=== PATIENT | female | born 1980 | race African-American/Black ===

== ENCOUNTER 2019-05-22 08:59 | Emergency (ER) | payer SELFPAY ==
--- NOTE | 2019-05-22 09:52 | ER ---
Nurse's Notes [facility] Name: Keara Ramsey Age: 38 yrs Sex: Female : 1980 Arrival Date: 05/22/2019 Time: 09:04 Bed 4 Private MD: Diagnosis: Allergic contact dermatitis due to other chemical products Presentation: 05/22 09:28 Presenting complaint: Patient states: known hx of allergic reaction to hair dye. Dyed iw her hair 2 night ago, scalp is now red, irritated, inflamed. Transition of care: patient was not received from another setting of care. Onset: The symptoms/episode began/occurred 2 day(s) ago. Anaphylaxis evaluation, no signs or symptoms of anaphylaxis were noted. Onset of symptoms was May 20, 2019. Risk Assessment: Do you want to hurt yourself or someone else? Patient reports no desire to harm self or others. Initial Sepsis Screen: Does the patient meet any 2 criteria? No. Patient's initial sepsis screen is negative. Does the patient have a suspected source of infection? No. Patient's initial sepsis screen is negative. Care prior to arrival: None. 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 - Social history:: Smoking status: Patient/guardian denies using tobacco. - Ebola Screening: : Patient negative for fever greater than or equal to 101.5 degrees Fahrenheit, and additional compatible Ebola Virus Disease symptoms Patient denies exposure to infectious person Patient denies travel to an Ebola-affected area in the 21 days before illness onset No symptoms or risks identified at this time. Screenin:00 Abuse screen: Denies threats or abuse. Denies injuries from another. Nutritional mg2 screening: No deficits noted. Tuberculosis screening: No symptoms or risk factors identified. Fall Risk None identified. Assessment: 09:59 General: Appears in no apparent distress. comfortable, Behavior is calm, cooperative. mg2 Pain: Denies pain. Neuro: Level of Consciousness is awake, alert, obeys commands, Oriented to person, place, time, situation. Cardiovascular: Capillary refill < 3 seconds Patient's skin is warm and dry. Respiratory: Airway is patent Respiratory effort is even, unlabored, Breath sounds are clear bilaterally. in mediastinum, right upper lobe, left upper lobe, right middle lobe, left lower lobe and right lower lobe. GI: No signs and/or symptoms were reported involving the gastrointestinal system. : No signs and/or symptoms were reported regarding the genitourinary system. EENT: No signs and/or symptoms were reported regarding the EENT system. EENT: Reports itchiness . Derm: Skin is intact, is healthy with good turgor, Skin is pink, warm \T\ dry. normal. Musculoskeletal: Circulation, motion, and sensation intact. Capillary refill < 3 seconds. Vital Signs: 09:31 BP 116 / 73; Pulse 78; Resp 16; Temp 97.8(TE); Pulse Ox 99% on R/A; Weight 113.4 kg; iw Height 5 ft. 3 in. (160.02 cm); Pain 0/10; 10:00 BP 117 / 80; Pulse 79; Resp 18; Temp 98; Pulse Ox 100% on R/A; Pain 0/10; mg2 09:31 Body Mass Index 44.29 (113.40 kg, 160.02 cm) iw ED Course: 09:04 Patient arrived in ED. mr 09:21 Boris Calhoun PA is PHCP. jmm 09:21 Saurabh Gonzalez MD is Attending Physician. jmm 09:29 Triage completed. iw 09:31 Kwan Patel, NEYMAR is Primary Nurse. bp 09:31 Arm band placed on. iw 10:00 No provider procedures requiring assistance completed. Patient did not have IV access mg2 during this emergency room visit. 10:01 Patient has correct armband on for positive identification. mg2 Administered Medications: 09:57 Drug: predniSONE 60 mg Route: PO; mg2 10:00 Follow up: Response: No adverse reaction; Medication administered at discharge. mg2 Outcome: 09:51 Discharge ordered by . jmm 10:01 Discharged to home ambulatory. mg2 10:01 Condition: stable 10:01 Discharge instructions given to patient, Instructed on discharge instructions, follow up and referral plans. no driving heavy equipment, Demonstrated understanding of instructions, follow-up care, medications, Prescriptions given X 2. 10:01 Patient left the ED. mg2 Signatures: Boris Calhoun PA PA [facility] m[facility] Marianne Hendricks, RN RN iw Kwan Patel RN RN Leighton Hwang RN RN mg2
--- NOTE | 2019-05-22 09:53 | EDPHYS ---
Physician Documentation [facility] Name: Keara Ramsey Age: 38 yrs Sex: Female : 1980 Arrival Date: 05/22/2019 Time: 09:04 Bed 4 Private MD: ED Physician Saurabh Gonzalez HPI: 05/22 09:38 This 38 yrs old Black Female presents to ER via Ambulatory with complaints of Allergic jmm Reaction. 09:38 The patient presents with itching, rash. Onset: The symptoms/episode began/occurred jmm acutely, 2 day(s) ago. Associated signs and symptoms: Pertinent negatives: abdominal pain, chest pain, fever, hives, Syncope vomiting. Possible causes: hair dye. This is a 38 year old female with no chronic medical conditions that presents to the ED with complaints of scalp tenderness and irritation after using a hair dye. Patient states this has happened in the past. Denies vomiting, denies shortness of breath. . 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 - Social history:: Smoking status: Patient/guardian denies using tobacco. - Ebola Screening: : Patient negative for fever greater than or equal to 101.5 degrees Fahrenheit, and additional compatible Ebola Virus Disease symptoms Patient denies exposure to infectious person Patient denies travel to an Ebola-affected area in the 21 days before illness onset No symptoms or risks identified at this time. ROS: 09:38 Constitutional: Negative for fever, chills, and weight loss, Cardiovascular: Negative jmm for chest pain, palpitations, and edema, Respiratory: Negative for shortness of breath, cough, wheezing, and pleuritic chest pain. 09:38 Skin: Positive for rash. 09:38 All other systems are negative. Exam: 09:38 Constitutional: This is a well developed, well nourished patient who is awake, alert, jmm and in no acute distress. 09:38 Eyes: EOMI, no conjunctival erythema appreciated ENT: Moist Mucus Membranes Neck: Trachea midline, Supple Chest/axilla: Normal chest wall appearance and motion. Cardiovascular: Regular rate and rhythm. No edema appreciated Respiratory: Normal respirations, no respiratory distress appreciated Abdomen/GI: Non distended, soft Back: Normal ROM 09:38 MS/ Extremity: Moves all extremities, no obvious deformities appreciated, no edema noted to the lower extremities Neuro: Awake and alert, normal gait Psych: Behavior is normal, Mood is normal, Patient is cooperative and pleasant 09:38 Head/face: erythema noted to the scalp diffusely. 09:38 Skin: erythema noted ot the scalp diffusely. Vital Signs: 09:31 BP 116 / 73; Pulse 78; Resp 16; Temp 97.8(TE); Pulse Ox 99% on R/A; Weight 113.4 kg; iw Height 5 ft. 3 in. (160.02 cm); Pain 0/10; 10:00 BP 117 / 80; Pulse 79; Resp 18; Temp 98; Pulse Ox 100% on R/A; Pain 0/10; mg2 09:31 Body Mass Index 44.29 (113.40 kg, 160.02 cm) iw MDM: 09:38 Patient medically screened. [facility] 09:49 Data reviewed: vital signs, nurses notes. Counseling: I had a detailed discussion with christina the patient and/or guardian regarding: the historical points, exam findings, and any diagnostic results supporting the discharge/admit diagnosis, the need for outpatient follow up, to return to the emergency department if symptoms worsen or persist or if there are any questions or concerns that arise at home. ED course: Patient washed her hair multiple times after exposure. I do not suspect anaphylaxis. Patient advised to follow up with pcp and otherwise given strict return precautions. Patient understood and agrees with the plan of care. . Administered Medications: 09:57 Drug: predniSONE 60 mg Route: PO; mg2 10:00 Follow up: Response: No adverse reaction; Medication administered at discharge. mg2 Disposition: 05/22/19 09:51 Discharged to Home. Impression: Allergic contact dermatitis due to other chemical products. - Condition is Stable. - Discharge Instructions: Allergies, Adult. - Prescriptions for Hydroxyzine HCl 25 mg Oral Tablet - take 1 tablet by ORAL route every 6 hours As needed; 30 tablet. Prednisone 20 mg Oral Tablet - take 3 tablet by ORAL route once daily for 5 days; 15 tablet. - Medication Reconciliation Form, Thank You Letter, Antibiotic Education, Prescription Opioid Use form. - Follow up: Private Physician; When: 2 - 3 days; Reason: Recheck today's complaints, Continuance of care, Re-evaluation by your physician. Addendum: 05/24/2019 04:43 Co-signature as Attending Physician, Saurabh Gonzalez MD. g s Signatures: Boris Calhoun PA PA jmm Williams, Irene, RN RN iw Saurabh Gonzalez MD MD Leighton Talley RN RN mg2 Corrections: (The following items were deleted from the chart) 05/22 10:01 09:51 05/22/2019 09:51 Discharged to Home. Impression: Allergic contact dermatitis due mg2 to other chemical products. Condition is Stable. Forms are Medication Reconciliation Form, Thank You Letter, Antibiotic Education, Prescription Opioid Use. Follow up: Private Physician; When: 2 - 3 days; Reason: Recheck today's complaints, Continuance of care, Re-evaluation by your physician. melvin
[2019-05-22] MEDS ORDERED: predniSONE 20 MG TAB ONE (09:55)
[2019-05-22 10:07] VITALS: BP 117/80; TEMP 98; O2SAT 100
== END 2019-05-22 10:01 | disposition home or self-care (01) ==
LOC: ER 08:59
DX: L23.5 Allergic contact dermatitis due to other chemical products (principal)
CPT/HCPCS: 99283; J7512

== ENCOUNTER 2021-04-19 15:13 | Emergency (ER) | payer SELFPAY ==
--- NOTE | 2021-04-19 17:15 | RAD REPORT ---
EXAM DESCRIPTION: RAD - Chest Single View - 04/19/2021 5:10 pm CLINICAL HISTORY: CHEST PAIN COMPARISON: CHEST SINGLE VIEW dated 01/19/2015 FINDINGS: Lines: None. Lungs: No evidence of edema or pneumonia. Pleural: No significant pleural effusions or pneumothorax. Cardiac: The heart size is within normal limits. Bones: No acute fractures. Other: IMPRESSION: No acute cardiopulmonary disease.
[2021-04-19] MEDS ORDERED: KETOROLAC 30 MG/ML INJ ONE (17:42)
[2021-04-19 18:33] LABS: Basophils % 1.2 % (0-1.3); Hematocrit 40.3 % (36.0-45.0); RBC Red Blood Cell Count 4.56 M/uL (3.86-4.86)
[2021-04-19 18:36] LABS: BUN Blood Urea Nitrogen 10 mg/dL (7-18); Bicarbonate 27 mmol/L (21-32); Glucose Level 83 mg/dL (74-106); Potassium 3.9 mmol/L (3.5-5.1); Sodium Level 137 mmol/L (136-145); Troponin (Emerg Dept Use Only) < 0.02 ng/mL (0.0-0.045)
--- NOTE | 2021-04-19 18:40 | ER ---
Nurse's Notes [facility] Name: Keara Ramsey Age: 40 yrs Sex: Female : 1980 Arrival Date: 04/19/2021 Time: 15:18 Bed 18 Private MD: Diagnosis: Chest pain, unspecified Presentation: 04/19 15:28 Chief complaint: Patient states: i am having chest pain for 2 days. if i yell it hurts. tw2 if i move it hurts. it felt like it was stronger today than yesterday. i am under a lot of stress. Onset of symptoms was April 19, 2021. 15:32 Coronavirus screen: At this time, the client does not indicate any symptoms associated tw2 with coronavirus-19. Ebola Screen: Patient denies travel to an Ebola-affected area in the 21 days before illness onset. Initial Sepsis Screen: Does the patient meet any 2 criteria? No. Patient's initial sepsis screen is negative. Does the patient have a suspected source of infection? No. Patient's initial sepsis screen is negative. Risk Assessment: Do you want to hurt yourself or someone else? Patient reports no desire to harm self or others. 15:32 Method Of Arrival: Ambulatory tw2 15:32 Acuity: STEPHANIE 3 tw2 Triage Assessment: 15:30 General: Appears in no apparent distress. obese, well groomed, Behavior is calm, tw2 cooperative, appropriate for age. Pain: Complains of pain in chest. Cardiovascular: Reports chest pain. 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 - Social history:: Smoking status: Patient reports the use of cigarette tobacco products, smoked about 3 weeks ago a vape. Screenin:30 Abuse screen: Denies threats or abuse. Denies injuries from another. Nutritional bp screening: No deficits noted. Tuberculosis screening: No symptoms or risk factors identified. Fall Risk None identified. Assessment: 15:30 General: Appears distressed, uncomfortable, obese, Behavior is cooperative, appropriate bp for age, anxious. Pain: Complains of pain in chest Pain does not radiate. Pain began 4 hours ago. Neuro: No deficits noted. Cardiovascular: No deficits noted. Respiratory: No deficits noted. GI: No signs and/or symptoms were reported involving the gastrointestinal system. : No signs and/or symptoms were reported regarding the genitourinary system. 18:30 Reassessment: PT D/C HOME AMBULATORY, DX WITH NON-CARDIAC CHEST PAIN. bp Vital Signs: 15:31 BP 120 / 71; Pulse 86; Resp 17; Temp 98.2(TE); Pulse Ox 100% on R/A; Weight 113.4 kg tw2 (R); Height 5 ft. 3 in. (160.02 cm) (R); Pain 8/10; 18:30 BP 127 / 64; Pulse 73; Resp 17; Pulse Ox 96% ; bp 15:31 Body Mass Index 44.29 (113.40 kg, 160.02 cm) tw2 ED Course: 15:18 Patient arrived in ED. as 15:30 Arm band placed on. tw2 15:30 Patient has correct armband on for positive identification. Bed in low position. Call bp light in reach. Side rails up X2. lunchroom monitor on. Pulse ox on. NIBP on. 15:32 Triage completed. tw2 16:45 Kwan Patel, RN is Primary Nurse. bp 16:45 Jonatan Strong MD is Attending Physician. sp3 17:10 XRAY Chest (1 view) In Process Unspecified. EDMS 17:50 Inserted saline lock: 22 gauge in right forearm, using aseptic technique. ,using kg aseptic technique. By [employer] Blood collected. 18:43 No provider procedures requiring assistance completed. IV discontinued, intact, bp bleeding controlled, No redness/swelling at site. Pressure dressing applied. Patient maintains SpO2 saturation greater than 95% on room air. Administered Medications: 17:57 CANCELLED (Physician Discretion; Changed to IV): Ketorolac 30 mg IM once sp3 18:02 Drug: Ketorolac 30 mg Route: IVP; Site: right forearm; kg 18:40 Follow up: Response: Pain is decreased bp 18:45 Follow up: Response: No adverse reaction; Pain is decreased bp Outcome: 18:39 Discharge ordered by . sp3 18:43 Discharged to home ambulatory. bp 18:43 Condition: stable 18:43 Discharge instructions given to patient, Instructed on discharge instructions, follow up and referral plans. Demonstrated understanding of instructions, follow-up care. 18:53 Patient left the ED. ld1 Signatures: Dispatcher [employer] EDAmy Ro Tara, RN RN tw2 Kwan Patel RN RN bp Aure Lamb RN RN ld1 Em Arellano RN RN kg Jonatan Strong MD MD sp3 Corrections: (The following items were deleted from the chart) 15:30 15:30 PSHx: None; tw2 tw2 18:43 17:30 BP 97 / 59; Pulse 102bpm; Resp 19bpm; Pulse Ox 95%; bp bp
--- NOTE | 2021-04-19 18:40 | EDPHYS ---
Physician Documentation [facility] Name: Keara Ramsey Age: 40 yrs Sex: Female : 1980 Arrival Date: 04/19/2021 Time: 15:18 Bed 18 Private MD: ED Physician Jonatan Strong HPI: 04/19 17:20 This 40 yrs old Black Female presents to ER via Ambulatory with complaints of Chest sp3 Pain. 17:25 40-year-old female with no significant past medical history presents with 7 days of sp3 chest pain in her muscles wrapping around into her back that is worse when she moves. 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 She denies any shortness of breath, cough, deep back pain, abdominal pain, epigastric pain, jaw pain, left arm pain, travel history,'s known sick contacts, any other symptoms. Symptoms are worse when she moves her upper extremities. Negative trauma.. 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 - Social history:: Smoking status: Patient reports the use of cigarette tobacco products, smoked about 3 weeks ago a vape. ROS: 17:26 Constitutional: Negative for fever, chills, and weight loss, Eyes: Negative for injury, sp3 pain, redness, and discharge, Neck: Negative for injury, pain, and swelling, Respiratory: Negative for shortness of breath, cough, wheezing, and pleuritic chest pain, Abdomen/GI: Negative for abdominal pain, nausea, vomiting, diarrhea, and constipation, Back: Negative for injury and pain, Neuro: Negative for headache, weakness, numbness, tingling, and seizure. 17:26 All other systems are negative. Exam: 17:27 Constitutional: This is a well developed, well nourished patient who is awake, alert, sp3 and in no acute distress. Head/Face: Normocephalic, atraumatic. Eyes: Pupils equal round and reactive to light, extra-ocular motions intact. Lids and lashes normal. Conjunctiva and sclera are non-icteric and not injected. Cornea within normal limits. Periorbital areas with no swelling, redness, or edema. ENT: Nares patent. No nasal discharge, no septal abnormalities noted. External auditory canals are clear. Oropharynx with no redness, swelling, or masses, exudates, or evidence of obstruction, uvula midline. Mucous membranes moist. Neck: Trachea midline, no thyromegaly or masses palpated, and no cervical lymphadenopathy. Supple, full range of motion without nuchal rigidity, or vertebral point tenderness. No Meningismus. Cardiovascular: Regular rate and rhythm with a normal S1 and S2. No gallops, murmurs, or rubs. Normal PMI, no JVD. No pulse deficits. Respiratory: Lungs have equal breath sounds bilaterally, clear to auscultation and percussion. No rales, rhonchi or wheezes noted. No increased work of breathing, no retractions or nasal flaring. Abdomen/GI: Soft, non-tender, with normal bowel sounds. No distension or tympany. No guarding or rebound. No evidence of tenderness throughout. Back: No spinal tenderness. No costovertebral tenderness. Full range of motion. Skin: Warm, dry with normal turgor. Normal color with no rashes, no lesions, and no evidence of cellulitis. MS/ Extremity: Pulses equal, no cyanosis. Neurovascular intact. Full, normal range of motion. Neuro: Awake and alert, GCS 15, oriented to person, place, time, and situation. Cranial nerves II-XII grossly intact. Motor strength 5/5 in all extremities. Sensory grossly intact. Cerebellar exam normal. Normal gait. Psych: Awake, alert, with orientation to person, place and time. Behavior, mood, and affect are within normal limits. 17:27 Chest/axilla: Pain to palpation of anterior chest muscles. Full range of motion noted under arms however that exacerbates her muscular pain.. 17:27 ECG was reviewed by the Attending Physician. EKG demonstrates normal sinus rhythm at 76 bpm with normal intervals, normal axis, normal QRS, nonspecific ST/T changes isolated in lead III which could represent lead placement. Vital Signs: 15:31 BP 120 / 71; Pulse 86; Resp 17; Temp 98.2(TE); Pulse Ox 100% on R/A; Weight 113.4 kg tw2 (R); Height 5 ft. 3 in. (160.02 cm) (R); Pain 8/10; 18:30 BP 127 / 64; Pulse 73; Resp 17; Pulse Ox 96% ; bp 15:31 Body Mass Index 44.29 (113.40 kg, 160.02 cm) tw2 MDM: 16:46 Patient medically screened. sp3 17:28 Data reviewed: vital signs. ED course: Patient's heart score is low therefore okay for sp3 discharge pending negative troponin and chest x-ray as well as the remainder of her labs. I do believe patient is having a cardiac event and is likely having MSK pain relative to her stressors and new business. Clinically have also ruled out pulmonary embolism, thoracic aortic dissection, sepsis, pneumonia, pneumothorax or any other critical illness. Once work-up is negative we will discharge patient home. Patient also received ketorolac 30 mg intramuscularly for relief.. 18:38 ED course: Laboratory values demonstrate no acute injury and are completely normal. sp3 Will discharge patient home at this time with reassurance. Her pain is improved with the medication as well.. 04/19 16:47 Order name: Basic Metabolic Panel; Complete Time: 18:38 sp3 04/19 16:47 Order name: CBC with Diff; Complete Time: 18:38 sp3 04/19 16:47 Order name: Troponin (emerg Dept Use Only); Complete Time: 18:38 3 04/19 16:47 Order name: XRAY Chest (1 view); Complete Time: 17:29 sp3 04/19 16:47 Order name: EKG; Complete Time: 16:48 sp3 04/19 16:47 Order name: EKG - Nurse/Tech; Complete Time: 16:51 sp3 04/19 16:47 Order name: IV Saline Lock; Complete Time: 18:02 sp3 04/19 16:47 Order name: Labs collected and sent; Complete Time: 18:02 3 Administered Medications: 17:57 CANCELLED (Physician Discretion; Changed to IV): Ketorolac 30 mg IM once sp3 18:02 Drug: Ketorolac 30 mg Route: IVP; Site: right forearm; kg 18:40 Follow up: Response: Pain is decreased bp 18:45 Follow up: Response: No adverse reaction; Pain is decreased bp Disposition Summary: 04/19/21 18:39 Discharge Ordered Location: Home sp3 Condition: Stable sp3 Diagnosis - Chest pain, unspecified sp3 Followup: sp3 - With: Private Physician - When: As needed - Reason: Re-evaluation by your physician Discharge Instructions: - Discharge Summary Sheet sp3 - Chest Wall Pain sp3 Forms: - Medication Reconciliation Form sp3 - Thank You Letter sp3 - Antibiotic Education sp3 - Prescription Opioid Use sp3 Signatures: Dispatcher [employer] EDStacey Oseguera RN RN tw2 Em Arellano RN RN kg Jonatan Strong MD MD sp3 Kwan Patel RN bp Corrections: (The following items were deleted from the chart) 15:30 15:30 PSHx: None; tw2 tw2 17:57 16:57 Ketorolac 30 mg IM once ordered. sp3 sp3
[2021-04-19 19:11] VITALS: TEMP 98.2
[2021-04-19 19:16] VITALS: BP 127/64; O2SAT 96
== END 2021-04-19 18:53 | disposition home or self-care (01) ==
LOC: ER 15:13
DX: R07.9 Chest pain, unspecified (principal); F17.210 Nicotine dependence, cigarettes, uncomplicated
CPT/HCPCS: 36415; 71045; 80048; 84484; 85025; 93005; 96374; 99285

== ENCOUNTER 2022-12-10 16:55 | Emergency (ER) | payer SELFPAY ==
[2022-12-10] MEDS ORDERED: KETOROLAC 30 MG/ML INJ ONE (17:44)
[2022-12-10] MEDS ORDERED: FAMOTIDINE 20 MG/2 ML VIAL IV ONE (17:44)
[2022-12-10] MEDS ORDERED: ONDANSETRON 4 MG/2 ML VIAL ONE (17:44)
[2022-12-10] MEDS ORDERED: NA CHLORIDE 0.9% 1,000 ML ONE (17:44)
[2022-12-10 18:10] LABS: Absolute Lymphocytes (CBC) 2.7 K/uL (0.7-4.9); Hematocrit 34.9 % (36.0-45.0); Lymphocytes % 30.6 % (15.3-44.8); MCV 80.7 fL (80-100); MPV 7.1 fL (7.6-11.3); RBC Red Blood Cell Count 4.32 M/uL (3.86-4.86)
[2022-12-10 18:28] LABS: Albumin 3.4 g/dL (3.4-5.0); Bilirubin Total 0.4 mg/dL (0.2-1.0); Potassium 3.5 mEq/L (3.5-5.1)
--- NOTE | 2022-12-10 19:11 | RAD REPORT ---
EXAM DESCRIPTION: US - Abdomen Exam Limited - 12/10/2022 6:37 pm CLINICAL HISTORY: ABD PAIN COMPARISON: CT ABD PELVIS W CONTRAST dated 09/30/2015 TECHNIQUE: Sonographic grayscale and color flow images of the right upper abdominal quadrant were obtained. FINDINGS: The gallbladder demonstrates no gallstones. No pericholecystic fluid or gallbladder wall t hickening. The common bile duct is normal measuring 5 mm. The liver demonstrates no findings of intrahepatic biliary dilatation. IMPRESSION: No acute abnormalities on right upper quadrant ultrasound.
--- NOTE | 2022-12-10 20:00 | RAD REPORT ---
EXAM DESCRIPTION: CT - Abdomen Pelvis W Contrast - 12/10/2022 7:18 pm CLINICAL HISTORY: ABD PAIN COMPARISON: CT ABD PELVIS W CONTRAST dated 09/30/2015 TECHNIQUE: Thin cut axial CT imaging of the abdomen and pelvis was performed following intravenous a dministration of 100 mL Isovue 300. Multiplanar reformats were generated and reviewed. All CT scans are performed using dose optimization technique as appropriate and may include automated exposure control or mA/KV adjustment according to patient size. FINDINGS: No suspicious findings in the lung bases. The liver, spleen, and pancreas show no suspicious findings. Gallbladder and biliary tree are also wi thout suspicious finding. Symmetric renal function is seen with no hydronephrosis or suspicious renal mass. No dilated bowel loops or bowel wall thickening. Appendix is normal in appearance. No free air, free fluid or inflammatory stranding. No hernia, mass or bulky lymphadenopathy. Diastasis recti. The urina ry bladder is without significant finding. No suspicious bony findings. IMPRESSION: No acute intra-abdominal process.
--- NOTE | 2022-12-10 20:21 | ER ---
Nurse's Notes [facility] Name: Keara Ramsey Age: 42 yrs Sex: Female : 1980 Arrival Date: 12/10/2022 Time: 16:[address] Private MD: Diagnosis: Abdominal pain, unspecified Presentation: 12/10 17:09 Chief complaint: Patient states: "Saturday night I drank some wine and the day my mb9 stomach started having a dull burning pain. It won't go away and nothing works. I took Gaviscon today and it gave me relief for 1 hr and the pain started back up. I haven't been nauseous and no diarrhea". Coronavirus screen: At this time, the client does not indicate any symptoms associated with coronavirus-19. Ebola Screen: No symptoms or risks identified at this time. Initial Sepsis Screen: Does the patient meet any 2 criteria? No. Patient's initial sepsis screen is negative. Does the patient have a suspected source of infection? No. Patient's initial sepsis screen is negative. Risk Assessment: Do you want to hurt yourself or someone else? Patient reports no desire to harm self or others. Onset of symptoms was December 10, 2022. 17:09 Method Of Arrival: Ambulatory 9 17:09 Acuity: STEPHANIE 3 mb9 Triage Assessment: 17:12 General: Appears uncomfortable, Behavior is cooperative. Pain: Complains of pain in mb9 abdomen Pain does not radiate. Quality of pain is described as aching, dull. GI: Abdomen is round non-distended, Bowel sounds present X 4 quads. Abd is soft Abdomen is tender to palpation in right upper quadrant and left upper quadrant Patient currently denies diarrhea, nausea. Derm: Skin is pink, warm \\T\\ dry. Musculoskeletal: Range of motion: intact in all extremities. Historical: - Allergies: 17:12 No Known Allergies; 9 - Home Meds: 17:12 tirzepatide 12.5 mg/0.5 mL subcutaneous Pen Injector every week for wt loss [Active]; mb9 - PMHx: 17:12 None; mb9 - PSHx: 17:12 section; mb9 - Immunization history:: Adult Immunizations up to date. - Social history:: Smoking status: Patient denies any tobacco usage or history of. Screenin:02 [facility] ED Fall Risk Assessment (Adult) History of falling in the last 3 months, kc6 including since admission No falls in past 3 months (0 pts) Confusion or Disorientation No (0 pts) Intoxicated or Sedated No (0 pts) Impaired Gait No (0 pts) Mobility Assist Device Used No (0 pt) Altered Elimination No (0 pt) Score/Fall Risk Level 0 - 2 = Low Risk Oriented to surroundings, Maintained a safe environment, Educated pt \\T\\ family on fall prevention, incl call for assistance when getting out of bed, Assessed \\T\\ reinforced patient's understanding of fall precautions, Hourly rounding (assess needs \\T\\ fall precautionary measures) done. Abuse screen: Denies threats or abuse. Denies injuries from another. Nutritional screening: No deficits noted. Tuberculosis screening: No symptoms or risk factors identified. Assessment: 18:02 General: Appears in no apparent distress. uncomfortable, Behavior is calm, cooperative, kc6 appropriate for age. Pain: Complains of pain in epigastric area. Neuro: Avelar Agitation-Sedation Scale (RASS): 0 - Alert and Calm Level of Consciousness is awake, alert, obeys commands, Oriented to person, place, time, situation, Appropriate for age. Cardiovascular: Capillary refill < 3 seconds. Respiratory: Airway is patent Trachea midline Respiratory effort is even, unlabored, Respiratory pattern is regular, symmetrical. GI: No signs and/or symptoms were reported involving the gastrointestinal system. : No signs and/or symptoms were reported regarding the genitourinary system. EENT: No signs and/or symptoms were reported regarding the EENT system. Derm: No signs and/or symptoms reported regarding the dermatologic system. Skin is intact, Skin is pink, warm \\T\\ dry. Musculoskeletal: No signs and/or symptoms reported regarding the musculoskeletal system. Circulation, motion, and sensation intact. Capillary refill < 3 seconds, Range of motion: intact in all extremities. 19:02 Reassessment: Patient appears in no apparent distress at this time. No changes from kc6 previously documented assessment. Patient and/or family updated on plan of care and expected duration. Pain level reassessed. Patient is alert, oriented x 3, equal unlabored respirations, skin warm/dry/pink. 19:30 General: Appears comfortable, Behavior is calm, cooperative. Pain: Complains of pain in ha1 epigastric area Pain does not radiate. Pain currently is 3 out of 10 on a pain scale. Neuro: Level of Consciousness is awake, alert, obeys commands, Oriented to person, place, time, situation. Cardiovascular: Capillary refill < 3 seconds. Respiratory: Airway is patent Respiratory effort is even, unlabored, Respiratory pattern is regular, symmetrical. GI: Abdomen is round non-distended, Bowel sounds present X 4 quads. Reports epigastric pain. 20:49 Reassessment: Patient and/or family updated on plan of care and expected duration. Pain ha1 level reassessed. Patient is alert, oriented x 3, equal unlabored respirations, skin warm/dry/pink. Patient denies pain at this time. Patient states feeling better. Patient states symptoms have improved. Vital Signs: 17:09 BP 138 / 85; Pulse 79; Resp 16; Temp 97.9(O); Pulse Ox 99% on R/A; Weight 107.95 kg; mb9 Height 5 ft. 3 in. ; Pain 4/10; 19:30 BP 135 / 82; Pulse 75; Resp 16 S; Pulse Ox 99% on R/A; ha1 20:30 BP 125 / 88; Pulse 72; Resp 16 S; Pulse Ox 99% on R/A; ha1 17:09 Body Mass Index 42.16 (107.95 kg, 160.02 cm) mb9 17:09 Pain Scale: Adult mb9 ED Course: 16:58 Patient arrived in ED. rg4 17:00 [facility] 17:00 Chas Wallis MD is Attending Physician. [facility] 17:12 Triage completed. mb9 17:12 Arm band placed on. mb9 17:34 Radiology exam delayed due to lab results not completed at this time. (BUN/Creatinine) jg10 test not completed at this time. IV insertion attempt and/or patient not having appropriate IV at this time. 17:59 Initial lab(s) drawn, by me, sent to lab. Inserted saline lock: 20 gauge in left em1 antecubital area, using aseptic technique. Blood collected. 18:03 Patient has correct armband on for positive identification. Bed in low position. Call kc6 light in reach. 18:39 US Abdomen Limited In Process Unspecified. EDMS 19:20 CT Abd/Pelvis - IV Contrast Only In Process Unspecified. EDMS 20:19 Roberto Parra MD is Referral Physician. [facility] 20:52 No provider procedures requiring assistance completed. IV discontinued, intact, ha1 bleeding controlled, No redness/swelling at site. Pressure dressing applied. Administered Medications: 18:01 Drug: NS 0.9% IV 1000 ml Route: IV; Rate: 1 bolus; Site: left antecubital; kc6 20:49 Follow up: Response: No adverse reaction; IV Status: Completed infusion; IV Intake: ha1 1000ml 18:01 Drug: Famotidine IVP 20 mg Route: IVP; Site: left antecubital; kc6 18:02 Drug: TORadol - Ketorolac IVP 15 mg Route: IVP; Site: left antecubital; kc6 18:02 Drug: Ondansetron IVP 4 mg Route: IVP; Site: left antecubital; kc6 Medication: 20:53 VIS not applicable for this client. ha1 Intake: 20:49 IV: 1000ml; Total: 1000ml. ha1 Outcome: 20:19 Discharge ordered by . [facility] 20:52 Discharged to home ambulatory. ha1 20:52 Condition: stable 20:52 Discharge instructions given to patient, Instructed on discharge instructions, follow up and referral plans. medication usage, Demonstrated understanding of instructions, follow-up care, medications, Prescriptions given X 4. 20:53 Patient left the ED. ha1 Signatures: Dispatcher [employer] EDMS Boris Calhoun PA PA jmm Martinez, Eric emCaty Sebastian rg4 Charlette French RN RN 3 Anne Bee RN RN ha1 Coty Benton RN RN kc6 Socorro Mcintyre0 Jamia Savage RN RN mb9 Corrections: (The following items were deleted from the chart) 21:06 17:33 Charlette French RN is Primary Nurse. 3 3
--- NOTE | 2022-12-10 20:21 | EDPHYS ---
Physician Documentation [facility] Name: Keara Ramsey Age: 42 yrs Sex: Female : 1980 Arrival Date: 12/10/2022 Time: 16:[address] Private MD: Chas Garcia HPI: 12/10 17:16 This 42 yrs old Black Female presents to ER via Ambulatory with complaints of Abdominal jmm Pain. 17:16 The patient presents with abdominal pain. Onset: The symptoms/episode began/occurred jmm today. The symptoms do not radiate. Associated signs and symptoms: Pertinent positives: nausea and vomiting. The symptoms are described as achy. Modifying factors: The symptoms are alleviated by nothing, the symptoms are aggravated by nothing. The patient has not experienced similar symptoms in the past. Historical: - Allergies: 17:12 No Known Allergies; mb9 - Home Meds: 17:12 tirzepatide 12.5 mg/0.5 mL subcutaneous Pen Injector every week for wt loss [Active]; mb9 - PMHx: 17:12 None; mb9 - PSHx: 17:12 section; mb9 - Immunization history:: Adult Immunizations up to date. - Social history:: Smoking status: Patient denies any tobacco usage or history of. ROS: 17:16 Constitutional: Negative for fever, chills, and weight loss, Cardiovascular: Negative jmm for chest pain, palpitations, and edema, Respiratory: Negative for shortness of breath, cough, wheezing, and pleuritic chest pain. 17:16 Abdomen/GI: Positive for abdominal pain, nausea and vomiting. 17:16 All other systems are negative. Exam: 17:16 Constitutional: This is a well developed, well nourished patient who is awake, alert, jmm and in no acute distress. Head/Face: atraumatic. Eyes: EOMI, no conjunctival erythema appreciated ENT: Moist Mucus Membranes Neck: Trachea midline, Supple Chest/axilla: Normal chest wall appearance and motion. Cardiovascular: Regular rate and rhythm. No edema appreciated Respiratory: Normal respirations, no respiratory distress appreciated Abdomen/GI: Non distended Back: Normal ROM Skin: General appearance color normal MS/ Extremity: Moves all extremities, no obvious deformities appreciated, no edema noted to the lower extremities Neuro: Awake and alert Psych: Behavior is normal, Mood is normal, Patient is cooperative and pleasant Vital Signs: 17:09 BP 138 / 85; Pulse 79; Resp 16; Temp 97.9(O); Pulse Ox 99% on R/A; Weight 107.95 kg; mb9 Height 5 ft. 3 in. ; Pain 4/10; 19:30 BP 135 / 82; Pulse 75; Resp 16 S; Pulse Ox 99% on R/A; ha1 20:30 BP 125 / 88; Pulse 72; Resp 16 S; Pulse Ox 99% on R/A; ha1 17:09 Body Mass Index 42.16 (107.95 kg, 160.02 cm) mb9 17:09 Pain Scale: Adult mb9 MDM: 17:16 [facility] 23:38 Differential diagnosis: bowel obstruction, cholecystitis, diverticulitis, Hepatitis, [facility] non-specific abd pain, pancreatitis, Peptic Ulcer Disease, Peritonitis. Data reviewed: vital signs, nurses notes, lab test result(s), radiologic studies, CT scan. I considered the following discharge prescriptions or medication management in the emergency department Medications were administered in the Emergency Department. See MAR. Counseling: I had a detailed discussion with the patient and/or guardian regarding: the historical points, exam findings, and any diagnostic results supporting the discharge/admit diagnosis, lab results, radiology results, the need for outpatient follow up, to return to the emergency department if symptoms worsen or persist or if there are any questions or concerns that arise at home. ED course: Patient states feeling much better. Advised to follow up with GI for further evaluation. Patient is otherwise given strict return precautions. patient understood and agrees with the plan of care. . 12/10 17:16 Order name: CBC with Diff; Complete Time: 18:17 [facility] 12/10 17:16 Order name: CMP; Complete Time: 18:31 [facility] 12/10 17:16 Order name: Lipase; Complete Time: 18:31 [facility] 12/10 17:16 Order name: CT Abd/Pelvis - IV Contrast Only; Complete Time: 20:03 [facility] 12/10 17:16 Order name: US Abdomen Limited; Complete Time: 19:14 [facility] 12/10 17:16 Order name: IV Saline Lock; Complete Time: 17:59 [facility] 12/10 17:16 Order name: Labs collected and sent; Complete Time: 17:59 [facility] Administered Medications: 18:01 Drug: NS 0.9% IV 1000 ml Route: IV; Rate: 1 bolus; Site: left antecubital; kc6 20:49 Follow up: Response: No adverse reaction; IV Status: Completed infusion; IV Intake: ha1 1000ml 18:01 Drug: Famotidine IVP 20 mg Route: IVP; Site: left antecubital; kc6 18:02 Drug: TORadol - Ketorolac IVP 15 mg Route: IVP; Site: left antecubital; kc6 18:02 Drug: Ondansetron IVP 4 mg Route: IVP; Site: left antecubital; kc6 Disposition Summary: 12/10/22 20:19 Discharge Ordered Location: Home [facility] Condition: Stable [facility] Diagnosis - Abdominal pain, unspecified [facility]up: [facility] - With: Roberto Parra MD - When: 2 - 3 days - Reason: Recheck today's complaints, Continuance of care, Re-evaluation by your physician Discharge Instructions: - Discharge Summary Sheet [facility] - Abdominal Pain, Adult [facility] Forms: - Medication Reconciliation Form [facility] - Thank You Letter [facility] - Antibiotic Education [facility] - Prescription Opioid Use [facility] Prescriptions: - ondansetron 4 mg Oral Tablet,disintegrating - take 1 tablet by ORAL route every 4-6 hours As needed; 30 tablet; Refills: 0, [facility] Product Selection Permitted - Carafate 1 gram Oral Tablet - take 1 tablet by ORAL route 4 times per day take on an empty stomach, beginning [facility] on waking and last dose at bedtime; 100 tablet; Refills: 0, Product Selection Permitted - Pepcid 20 mg Oral Tablet - take 1 tablet by ORAL route every 12 hours for 10 days; 20 tablet; Refills: 0, [facility] Product Selection Permitted - dicyclomine 20 mg Oral Tablet - take 1 tablet by ORAL route 4 times per day As needed; 30 tablet; Refills: 0, [facility] Product Selection Permitted Signatures: Dispatcher [employer] Boris Bishop PA PA [facility] Coty Benton RN RN kc6 Jamia Savage RN RN mb9 Anne Bee RN ha1
[2022-12-10 21:28] VITALS: TEMP 97.9; O2SAT 99
[2022-12-10 21:39] VITALS: BP 125/88
== END 2022-12-10 20:53 | disposition home or self-care (01) ==
LOC: ER 16:55
DX: R10.9 Unspecified abdominal pain (principal); R11.2 Nausea with vomiting, unspecified
CPT/HCPCS: 36415; 74177; 76705; 80053; 83690; 85025; 96361; 96374; 96375; 99284; J2405; J7030; Q9967

== ENCOUNTER 2024-01-28 14:10 | Emergency (ER) | payer OTHER ==
--- NOTE | 2024-01-28 14:43 | RAD REPORT ---
EXAM DESCRIPTION: RAD - Chest Single View - 01/28/2024 2:33 pm CLINICAL HISTORY: CHEST PAIN Chest pain. COMPARISON: Chest Single View dated 04/19/2021; CHEST SINGLE VIEW dated 01/19/2015 FINDINGS: Portable technique limits examination quality. The lungs are grossly clear. The heart is normal in size. No displaced fractures. IMPRESSION: No acute intrathoracic process suspected.
[2024-01-28 14:47] LABS: Absolute Eosinophils 0.1 K/uL (0-0.5); Absolute Lymphocytes (CBC) 1.8 K/uL (0.7-4.9); Absolute Monocytes 0.4 K/uL (0.1-1.3); Basophils % 0.2 % (0-1.3); Hematocrit 29.9 % (36.0-45.0); Hemoglobin 8.8 g/dL (12.0-15.0); Lymphocytes % 28.4 % (15.3-44.8); MCH 19.3 pg (27.0-35.0); MCHC 29.4 g/dL (32.0-36.0); MCV 65.6 fL (80-100); MPV 6.9 fL (7.6-11.3); Monocytes % 5.9 % (3.3-12.3); Neutrophils % 63.5 % (41.7-73.7); Platelets 466 thou/uL (152-406); RBC Red Blood Cell Count 4.56 M/uL (3.86-4.86); Red Cell Distribution Width 19.6 % (12.1-15.2)
[2024-01-28 15:06] LABS: Specific Gravity 1.006 (1.005-1.030)
[2024-01-28 15:07] LABS: Specific Gravity 1.006 (1.005-1.030); Sqamous Epithelial <5 /HPF (None Seen); Urine Bacteria None Seen /HPF (<20); Urine Bilirubin NEGATIVE (Negative); Urine Blood 3+ (OVER) (Negative); Urine Clarity Turbid (Clear); Urine Color Colorless (Yellow); Urine Crystals Unidentified Few /HPF (None Seen); Urine Culture Reflex Order NOT NEEDED; Urine Glucose NEGATIVE (Negative); Urine Ketones NEGATIVE (Negative); Urine Microscopic Reflex YN ORDER UMIC; Urine Mucus Slight /HPF (None Seen); Urine Nitrite NEGATIVE (Negative); Urine Protein NEGATIVE (Negative); Urine RBC <5 /HPF (None Seen); Urine Urobilinogen Normal (Normal); Urine WBC <5 /HPF (<5)
[2024-01-28 15:08] LABS: Albumin 3.5 g/dL (3.4-5.0); Albumin/Globulin Ratio 0.7 (1.1-1.8); Anion Gap 8.6 mEq/L (5.0-15.0); Bilirubin Total 0.4 mg/dL (0.2-1.0); Globulin 4.9 g/dL (2.3-3.5); Potassium 3.6 mEq/L (3.5-5.1); Protein, Total 8.4 g/dL (6.4-8.2); Troponin High Sensitivity 3.7 pg/mL (<58.9)
--- NOTE | 2024-01-28 15:28 | RAD REPORT ---
EXAM DESCRIPTION: CTAbdomen Pelvis W Contrast - 01/28/2024 3:19 pm CLINICAL HISTORY: Abdominal pain. ABD PAIN COMPARISON: <Comparisons> TECHNIQUE: Biphasic CT imaging of the abdomen and pelvis was performed with 100 ml non-ionic IV cont rast. All CT scans are performed using dose optimization technique as appropriate and may include automated exposure control or mA/KV adjustment according to patient size. FINDINGS: The lung bases are clear. The liver, spleen, pancreas, adrenal glands and kidneys are within normal limits. No bowel obstruction, free air, free fluid or abscess. The appendix is normal. No evidence of signi ficant lymphadenopathy. No suspicious bony findings. IMPRESSION: No acute intra-abdominal or pelvic finding.
[2024-01-28 17:25] VITALS: BP 138/84; TEMP 97.6; O2SAT 100
[2024-01-28 17:50] LABS: Anisocytosis 1+; Blood Morphology Comment NOTED (NOT SEEN); Hypochromasia 1+; Microcytosis 1+; Ovalocytes 1+; Platelet Estimate INCR; Polychromasia 1+; White Blood Cell Scan OK (OK)
--- NOTE | 2024-01-28 18:13 | ER ---
Nurse's Notes [facility] Name: Keara Ramsey Age: 43 yrs Sex: Female : 1980 Arrival Date: 01/28/2024 Time: 14:10 Bed 19 Private MD: Diagnosis: Upper abdominal pain, unspecified;Chest pain, unspecified;Anemia, unspecified Presentation: 01/27 14:20 Chief complaint: Patient states: Chest congestion for years. Abdominal pain, WORRELL, and ll1 N/V began yesterday. Coronavirus screen: Client denies travel out of the [place] in the last 14 days. At this time, the client does not indicate any symptoms associated with coronavirus-19. Ebola Screen: Patient denies travel to an Ebola-affected area in the 21 days before illness onset. Initial Sepsis Screen: Does the patient meet any 2 criteria? No. Patient's initial sepsis screen is negative. Does the patient have a suspected source of infection? No. Patient's initial sepsis screen is negative. Risk Assessment: Do you want to hurt yourself or someone else? Patient reports no desire to harm self or others. Onset of symptoms was January 27, 2024. 14:20 Method Of Arrival: Ambulatory ll1 14:20 Acuity: STEPHANIE 3 ll1 Triage Assessment: 14:23 General: Appears uncomfortable, Behavior is calm, cooperative, appropriate for age. ll1 Pain: Complains of pain in abdomen Quality of pain is described as aching. Neuro: Reports headache weakness. Cardiovascular: Reports chest pain, fatigue, nausea. GI: Reports lower abdominal pain, upper abdominal pain, nausea, vomiting. Historical: - Allergies: 14:20 No Known Drug Allergies; ll1 - PMHx: 14:57 None; mb9 - PSHx: 14:20 section; ll1 - Immunization history:: Adult Immunizations up to date. - Infectious Disease History:: Denies. - Social history:: Smoking status: Patient denies any tobacco usage or history of. Screenin:34 [facility] ED Fall Risk Assessment (Adult) History of falling in the last 3 months, mb9 including since admission No falls in past 3 months (0 pts) Confusion or Disorientation No (0 pts) Intoxicated or Sedated No (0 pts) Impaired Gait No (0 pts) Mobility Assist Device Used No (0 pt) Altered Elimination No (0 pt) Score/Fall Risk Level 0 - 2 = Low Risk Oriented to surroundings, Maintained a safe environment, Educated pt \T\ family on fall prevention, incl call for assistance when getting out of bed. Abuse screen: Denies threats or abuse. Nutritional screening: No deficits noted. Tuberculosis screening: No symptoms or risk factors identified. Assessment: 14:42 General: Appears in no apparent distress. Behavior is calm, cooperative. Pain: mb9 Complains of pain in chest, abdomen, and head Pain does not radiate. Pain currently is 0 out of 10 on a pain scale. Quality of pain is described as throbbing, Pain began suddenly, Is intermittent. Neuro: Avelar Agitation-Sedation Scale (RASS): 0 - Alert and Calm Level of Consciousness is awake, alert, obeys commands, Oriented to person, place, time, situation, Appropriate for age Reports headache. Cardiovascular: Heart tones S1 S2 present Patient's skin is warm and dry. Respiratory: Airway is patent Respiratory effort is even, unlabored, Respiratory pattern is regular, symmetrical, Breath sounds are clear bilaterally. GI: Abdomen is round non-distended, Bowel sounds present X 4 quads. Abd is soft and non tender X 4 quads. : No signs and/or symptoms were reported regarding the genitourinary system. EENT: No signs and/or symptoms were reported regarding the EENT system. Derm: Skin is pink, warm \T\ dry. Musculoskeletal: Range of motion: intact in all extremities. 16:59 Reassessment: No changes from previously documented assessment. Patient and/or family mb9 updated on plan of care and expected duration. Pain level reassessed. Patient is alert, oriented x 3, equal unlabored respirations, skin warm/dry/pink. Vital Signs: 14:20 BP 149 / 91; Pulse 80; Resp 17; Temp 97.6; Pulse Ox 100% ; Weight 108.41 kg; Height 5 ll1 ft. 3 in. ; 16:58 BP 138 / 84; Pulse 74; Resp 18; Pulse Ox 100% on R/A; mb9 14:20 Body Mass Index 42.34 (108.41 kg, 160.02 cm) ll1 [place] Coma Score: 16:47 Eye Response: spontaneous(4). Motor Response: obeys commands(6). Verbal Response: kb oriented(5). Total: 15. ED Course: 14:13 Patient arrived in ED. mr 14:17 Noe Francoistin, [facility]. kb 14:17 Charlie Boone MD is Attending Physician. kb 14:23 Triage completed. ll1 14:23 Arm band placed on. ll1 14:29 Jamia Savage, RN is Primary Nurse. mb9 14:30 Patient placed in an exam room, on a stretcher. ll1 14:34 Placed in gown. Bed in low position. Call light in reach. Side rails up X 1. Provided mb9 Education on: press call light if needing anything. Client placed on continuous cardiac and pulse oximetry monitoring. NIBP monitoring applied. quality assurance monitor on. 14:35 XRAY Chest (1 view) In Process Unspecified. EDMS 14:35 No provider procedures requiring assistance completed. mb9 14:42 Lipase Sent. bc6 14:42 CBC with Diff Sent. bc6 14:42 CMP Sent. 6 14:42 Initial lab(s) drawn, by me, sent to lab. Inserted saline lock: 20 gauge in right bc6 antecubital area, using aseptic technique. Blood collected. 14:55 Test, Urine Sent. mb9 14:55 Urinalysis w/ reflexes Sent. mb9 14:57 Urine collected: clean catch specimen, clear. mb9 15:[address] via wheelchair. mb9 15:20 CT Abd/Pelvis - IV Contrast Only In Process Unspecified. EDMS 16:59 IV discontinued, intact, bleeding controlled, No redness/swelling at site. Pressure mb9 dressing applied. Administered Medications: 14:52 Drug: Famotidine IVP 20 mg IVP once; dilute with 10 mL 0.9% NaCl; give over 2 minutes mb9 Route: IVP; Site: right antecubital; 16:58 Follow up: Response: No adverse reaction mb9 14:55 Drug: NS 0.9% IV 1000 ml IV at 1 bolus Per protocol; 1000 mL bolus Route: IV; Rate: 1 mb9 bolus; Site: right antecubital; 16:58 Follow up: Response: No adverse reaction; IV Status: Completed infusion mb9 14:55 Drug: Ondansetron IVP 4 mg IVP once; over 2 minutes Route: IVP; Site: right antecubital;mb9 16:58 Follow up: Response: No adverse reaction mb9 Medication: 14:35 VIS not applicable for this client. mb9 Outcome: 16:29 Discharge ordered by . bianca 16:59 Discharged to home ambulatory, mb9 16:59 Condition: stable 16:59 Discharge instructions given to patient, Instructed on discharge instructions, follow up and referral plans. Demonstrated understanding of instructions, follow-up care, medications, Prescriptions given X 1, 16:59 Patient left the ED. mb9 Signatures: Dispatcher [employer] EDMS Raisa Franco, QUALITY SYSTEM MANAGER-C QUALITY SYSTEM MANAGER-Ckb Jamia Lane, Reg Reg mr Paige Brumfield, RN RN ll1 Jamia Savage, RN RN mb9 Marilu Tom 6 Corrections: (The following items were deleted from the chart) 14:25 14:20 Pulse 80bpm; Resp 17bpm; Pulse Ox 100%; Temp 97.6F; ll1 ll1
--- NOTE | 2024-01-28 18:13 | EDPHYS ---
Physician Documentation [facility] Name: Keara Ramsey Age: 43 yrs Sex: Female : 1980 Arrival Date: 01/28/2024 Time: 14:10 Bed 19 Private MD: ED Physician Charlie Boone HPI: 01/27 16:45 This 43 yrs old Black Female presents to ER via Ambulatory with complaints of Chest kb Pain, Abdominal Pain, Headache. 16:45 Pt is a 43 year old female who presents for headache, nausea, vomiting and abd pain kb that started in that order yesterday. States her vomit was brown this morning so that concerned her. Also reports chest congestion and burning that started in 2019 when COVID started. States she has also been eating ice for the last 5 months so she knows her iron is low. Denies any bleeding. Historical: - Allergies: 14:20 No Known Drug Allergies; ll1 - PMHx: 14:57 None; mb9 - PSHx: 14:20 section; ll1 - Immunization history:: Adult Immunizations up to date. - Infectious Disease History:: Denies. - Social history:: Smoking status: Patient denies any tobacco usage or history of. ROS: 16:46 Constitutional: As per HPI kb Exam: 14:58 Constitutional: This is a well developed, well nourished patient who is awake, alert, kb and in no acute distress. Head/Face: Normocephalic, atraumatic. ENT: Moist Mucous membranes Cardiovascular: Regular rate Respiratory: Respirations even and unlabored. No increased work of breathing. Talking in full sentences Abdomen/GI: Soft, non-tender. No distention Skin: Warm, dry with normal turgor. Normal color. MS/ Extremity: Pulses equal, no cyanosis. Neurovascular intact. Full, normal range of motion. Neuro: Awake and alert, GCS 15, oriented to person, place, time, and situation. Moves all extremities. Normal gait. 14:58 ECG was reviewed by the Attending Physician. Vital Signs: 14:20 BP 149 / 91; Pulse 80; Resp 17; Temp 97.6; Pulse Ox 100% ; Weight 108.41 kg; Height 5 ll1 ft. 3 in. ; 16:58 BP 138 / 84; Pulse 74; Resp 18; Pulse Ox 100% on R/A; mb9 14:20 Body Mass Index 42.34 (108.41 kg, 160.02 cm) ll1 Melissa Coma Score: 16:47 Eye Response: spontaneous(4). Motor Response: obeys commands(6). Verbal Response: kb oriented(5). Total: 15. MDM: 14:17 Patient medically screened. 16:47 Differential diagnosis: GERD, pancreatitis, migraine, ulcer, gi bleed. Data reviewed: vital signs, nurses notes. Consideration of Admission/Observation Escalation of care including admission/observation considered. admission considered but vital signs stable, pt asymptomatic of anemia. Pt educated on strict return precautions and need for follow up with GI. Verbal understanding received. . 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 16:48 I considered the following discharge prescriptions or medication management in the emergency department I discussed and recommended Over The Counter medications, Recommended iron supplements . 01/27 14:24 Order name: CBC with Diff 01/27 14:24 Order name: CMP; Complete Time: 15:12 kb 01/27 14:24 Order name: Lipase; Complete Time: 15:12 kb 01/27 14:24 Order name: Test, Urine; Complete Time: 15:12 kb 01/27 14:24 Order name: Urinalysis w/ reflexes; Complete Time: 15:12 kb 01/27 14:24 Order name: Troponin HS; Complete Time: 15:12 kb 01/27 14:24 Order name: CT Abd/Pelvis - IV Contrast Only; Complete Time: 15:31 kb 01/27 14:24 Order name: XRAY Chest (1 view); Complete Time: 14:45 kb 01/27 14:24 Order name: EKG; Complete Time: 14:25 kb 01/27 14:24 Order name: IV Saline Lock; Complete Time: 14:42 kb 01/27 14:24 Order name: Labs collected and sent; Complete Time: 14:42 kb 01/27 14:24 Order name: EKG - Nurse/Tech; Complete Time: 14:35 kb EC:58 Rate is 79 beats/min. Rhythm is regular. QRS Pyatt is Normal. NC interval is normal at kb 146 msec. QRS interval is normal at 88 msec. QT interval is normal at 438 msec. Administered Medications: 14:52 Drug: Famotidine IVP 20 mg IVP once; dilute with 10 mL 0.9% NaCl; give over 2 minutes mb9 Route: IVP; Site: right antecubital; 16:58 Follow up: Response: No adverse reaction mb9 14:55 Drug: NS 0.9% IV 1000 ml IV at 1 bolus Per protocol; 1000 mL bolus Route: IV; Rate: 1 mb9 bolus; Site: right antecubital; 16:58 Follow up: Response: No adverse reaction; IV Status: Completed infusion mb9 14:55 Drug: Ondansetron IVP 4 mg IVP once; over 2 minutes Route: IVP; Site: right antecubital;mb9 16:58 Follow up: Response: No adverse reaction mb9 Disposition Summary: 01/28/24 16:29 Discharge Ordered Notes: Location: Home kb Condition: Stable kb Diagnosis - Upper abdominal pain, unspecified kb - Chest pain, unspecified kb - Anemia, unspecified kb Followup: kb - With: Emergency Department - When: As needed - Reason: Worsening of condition Followup: kb - With: Private Physician - When: 2 - 3 days - Reason: Recheck today's complaints, Continuance of care, Re-evaluation by your physician Discharge Instructions: - Discharge Summary Sheet kb - Anemia kb - Abdominal Pain, Adult, [id number] kb - Nonspecific Chest Pain, Adult, [id number] kb Forms: - Medication Reconciliation Form kb - Antibiotic Education kb - Prescription Opioid Use kb - Patient Portal Instructions kb - Leadership Thank You Letter kb Prescriptions: - Protonix 40 mg Oral Tablet - take 1 tablet ORAL route once daily; 30 tablet; Refills: 0, Product Selection kb Permitted Signatures: Dispatcher [employer] Raisa Post FNP-C FNP-Paige Em RN RN ll1 Jamia Savage RN RN mb9 Corrections: (The following items were deleted from the chart) 14:25 14:24 CBC+H.LAB.BRZ ordered. EDMS EDMS 14:25 14:24 COMPREHENSIVE METABOLIC PANEL+C.LAB.BRZ ordered. EDMS EDMS 14: 14:24 LIPASE+C.LAB.BRZ ordered. EDMS EDMS 14: 14:24 Test, Urine+UC.LAB.BRZ ordered. EDMS EDMS 14: 14:24 Urinalysis+U.LAB.BRZ ordered. EDMS EDMS 14: 14:24 Troponin High Sensitivity+C.LAB.BRZ ordered. EDMS EDMS
== END 2024-01-28 16:59 | disposition home or self-care (01) ==
LOC: ER 14:10
DX: R07.9 Chest pain, unspecified (principal); D64.9 Anemia, unspecified; R10.10 Upper abdominal pain, unspecified
CPT/HCPCS: 85025; 81001; 36415; 81025; 84484; 83690; 80053; 74177; 71045; Q9967; 93005

== ENCOUNTER 2025-04-27 23:39 | Emergency (ER) | payer OTHER ==
--- OUTSIDE RECORDS SUMMARY | 2025-04-27 23:41 | XMS REPORT | Continuity of Care Document ---
Author Name Unknown Address [address] [facility] [address] [place] [address] [facility] [place] [facility] [address] [facility] [place] [address] Care Team Providers Care Private Pilot Name Role Phone PATRICK CORRAL Attending Clinician Unavailable [id number] Attending Clinician Unavailable SARAH MICHAELS Attending Clinician Unavailable [id number] Attending Clinician Unavailable DOUG Attending Clinician Unavailable Payers Payer Name Policy Type Policy Number Effective Date Expirati on Date Source [employer] 94 9 [id number] 2024 00:00:00 Social History Social Habit Start Date Stop Date Quantity Comments Source Sexual orientation Fredo daniels Ivan - External Sex assigned at 1980 00:00:00 1980 00:00:00 Kia Love - External Smoking Status Start Date Stop Date Source Tobacco smoking consumption unknown Kia Love - External Medications Ordered Medication Name Filled Medication Name Start Date Stop Date Current Medication? Ordering Clinician Indication Dosage Frequency Signature (SIG) Comments Components Source Pantoprazol e Sodium (Protonix) 20 MG oral Tablet Delayed Response 02-04 16:34: 05 02-04 00:00 :00 No 20mg QD Take 1 tablet (20 mg total) by mouth daily. Kia burrell Omeprazole 40 MG oral Delayed Release Capsule 02-04 00:00: 00 Yes [id number] 40mg QD Take 1 capsule (40 mg total) by mouth daily. Kia burrell Sucralfate (Carafate) 1 g oral Tablet 02-04 00:00: 00 Yes [id number] 1g Q.25D Take 1 tablet (1 g total) by mouth 4 times daily. Kia Seybold - Externa l Polyethylen e Glycol 3350 17 g oral Pack 02-04 00:00: 00 Yes [id number] 17g Q.5D Take 17 g by mouth 2 times daily. Kia Alstonybold - Externa l Vital Signs Vital Name Observation Time Observation Value Monica lind Systolic blood pressure 2024-02-05 21:18:00 136 mm[Hg] Kia Carpentero ld - External Diastolic blood pressure 2024-02-05 21:18:00 84 mm[Hg] Kia Carpentero ld - External Heart rate 2024-02-05 21:18:00 81 /min Everette y Ivan - External Body temperature 2024-02-05 21:18:00 36.67 Amber Kia Alstonybold - External Respiratory rate 2024-02-05 21:18:00 16 /min Kia Carpenterold - External Body height 2024-02-05 21:18:00 160 cm Maisha ey Seybold - External Body weight 2024-02-05 21:18:00 106.595 kg Maisha ey Seybold - External BMI 2024-02-05 21:18:00 41.63 kg/m2 Maisha ey Seybold - External Encounters Start Date/Time End Date/Time Encounter Type Admission Type Attending [facility] Care Department Encounter ID Source 2025-04-30 16:00:00 2025-04-30 16:00:00 Outpatient PATRICK CORRAL [id number] Kia Love 2025-04-27 00:00:00 2025-04-27 00:00:00 Outpatient GINUR02 [id number] [facility]24-08-28 00:00:00 2024-08-28 00:00:00 Outpatient SARAH MICHAELS [id number] Kia Love 2024-02-19 07:00:00 2024-02-19 07:00:00 Outpatient SARAH MICHAELS [id number] [facility] 2024-02-05 16:55:00 2024-02-05 16:55:00 Outpatient LAB39 KIA BRISENO [id number] Kia [facility] 2024-02-05 16:15:00 2024-02-05 16:15:00 Outpatient SARAH MICHAELS [id number] Kia Love 2024-02-04 00:00:00 2024-02-04 00:00:00 Outpatient DOUG BRISENO [id number] Kia Love History and Physical Notes Date/Time Note Provider Source 2024-02-05 16:41:22 GI New Patient Visit Chief Complaint Patient presents with Follow-up Hospitalization Epigastric pain, nausea/vomiting, hematemesis, weight loss, anemia HPI: Keara Ramsey is a 43 year old female who presents to discuss epigastric pain, nausea/vomiting, hematemesis, weight loss. On 01/26, she developed fairly significant dull and achy epigastric abdominal pain. She also had severe nausea and an episode of coffee-ground emesis. She went to an outside ER and had the following workup done: 01/28/2024 hemoglobin 8.8 01/28/2024 CT: No acute findings. She was discharged from the ER on pantoprazole and has been taking this on a daily basis. She feels that this helps only marginally with her epigastric abdominal pain and nausea symptoms. She continues to have difficulty with dull and achy pain which worsens with eating. She had 1 further episode of emesis in the last week but tells me that it was nonbloody. She has lost approximately 8 pounds over the course of the last week on account of her symptoms. She does not use any NSAIDs regularly. She has not had any fevers or chills. She has not had an upper endoscopy before. She does still have her gallbladder in situ. She has no family history of esophageal or gastric malignancy. He is also quite constipated and has not had a bowel movement since her discharge from the ER. No past medical history on file. No past surgical history on file. No current outpatient medications on file prior to visit. No current facility-administered medications on file prior to visit. No Known Allergies No family history on file. ROS: 05/25 systems reviewed, negative except for as mentioned in HPI. PE: BP 136/84 (Side: Right Arm, Position: SITTING, Cuff Size: Large Adult) | Pulse 81 | Temp 98 ?F (36.7 ?C) (Oral) | Resp 16 | Ht 5' 3" (1.6 m) | Wt 235 lb (106.6 kg) | BMI 41.63 kg/m? Gen: NAD, AO x 3 HEENT: PERRLA EOMI, MMM, No icterus Ab: soft, nt, nd, +bs, no rebound/guarding, no HSM CV: No ext c/c/e, wwp Skin: No rashes, jaundice, petechiae Psych: Appropriate mood and affect Neuro: CN II-XII grossly intact : Deferred Pertinent Lab and Diagnostic Tests: Reviewed in EMR. A/P: 43 year old female who presents with epigastric abdominal pain, nausea/vomiting, hematemesis, weight loss, and anemia. I am surprised that she was sent home from the ER with reports of coffee-ground emesis and a hemoglobin of 8.8. I recommended an expedited endoscopy for further evaluation. Possibilities for her pain, nausea/vomiting include gastric or esophageal malignancy, peptic ulcer disease, H. pylori, or potentially even gallbladder disease with unrelated hematemesis (M-W tear?). Recommendations are as follows: RV 3 mos. Thank you for this interesting consultation. The above instructions were reviewed with the patient during the clinic visit. All questions were answered. Sarah Michaels MD [facility] Notes Date/Time Note Provider Source 2024-02-05 16:18:36 Chief Complaint Patient presents with Follow-up Hospitalization PERRI Pagan II [facility]
[2025-04-28] MEDS ORDERED: FAMOTIDINE 20 MG/2 ML VIAL IV ONE (00:07)
[2025-04-28] MEDS ORDERED: NA CHLORIDE 0.9% 1,000 ML ONE (00:07)
[2025-04-28] MEDS ORDERED: ONDANSETRON 4 MG/2 ML VIAL ONE (01:14)
[2025-04-28] MEDS ORDERED: FENTANYL CITR 100 MCG/2 ML ONE (01:15)
--- NOTE | 2025-04-28 01:31 | ER ---
Nurse's Notes [facility] Name: Keara Ramsey Age: 44 yrs Sex: Female : 1980 Arrival Date: 04/27/2025 Time: 23:39 Bed 18 Private MD: Diagnosis: Upper abdominal pain, unspecified Presentation: 04/27 23:53 Chief complaint: Patient states: i have a stomach ulcer and the pain is really bad. lg3 Coronavirus screen: Client denies travel out of the [place] in the last 14 days. At this time, the client does not indicate any symptoms associated with coronavirus-19. Ebola Screen: No symptoms or risks identified at this time. Initial Sepsis Screen: Does the patient meet any 2 criteria? No. Patient's initial sepsis screen is negative. Does the patient have a suspected source of infection? No. Patient's initial sepsis screen is negative. Risk Assessment: Do you want to hurt yourself or someone else? Patient reports no desire to harm self or others. Onset of symptoms is unknown. 23:53 Method Of Arrival: Ambulatory lg3 23:53 Acuity: STEPHANIE 4 lg3 Triage Assessment: 23:54 General: Appears in no apparent distress. uncomfortable, Behavior is cooperative, lg3 fussy, restless. Pain: Complains of pain in epigastric area, right upper quadrant and left upper quadrant Pain currently is 8 out of 10 on a pain scale. EENT: No deficits noted. No signs and/or symptoms were reported regarding the EENT system. Neuro: Avelar Agitation-Sedation Scale (RASS): +1 Restless Level of Consciousness is awake, alert, obeys commands, Oriented to person, place, time, situation. Cardiovascular: No deficits noted. Denies chest pain, shortness of breath, Capillary refill < 3 seconds. Respiratory: No deficits noted. Airway is patent Respiratory effort is even, unlabored, Respiratory pattern is regular, symmetrical. GI: Abdomen is round non-distended, obese, Reports upper abdominal pain. : No signs and/or symptoms were reported regarding the genitourinary system. Derm: No deficits noted. No signs and/or symptoms reported regarding the dermatologic system. Skin is intact, is healthy with good turgor, Skin is dry, Skin is normal, Skin temperature is warm. Musculoskeletal: No deficits noted. No signs and/or symptoms reported regarding the musculoskeletal system. Circulation, motion, and sensation intact. Range of motion: intact in all extremities. 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 - Infectious Disease History:: Denies. - Social history:: Smoking status: Patient denies any tobacco usage or history of. Patient/guardian denies using alcohol, street drugs. Screenin:57 [facility] ED Fall Risk Assessment (Adult) History of falling in the last 3 months, lg3 including since admission No falls in past 3 months (0 pts) Confusion or Disorientation No (0 pts) Intoxicated or Sedated No (0 pts) Impaired Gait No (0 pts) Mobility Assist Device Used No (0 pt) Altered Elimination No (0 pt) Score/Fall Risk Level 0 - 2 = Low Risk Oriented to surroundings, Maintained a safe environment, Educated pt \T\ family on fall prevention, incl call for assistance when getting out of bed, Assessed \T\ reinforced patient's understanding of fall precautions. Abuse screen: Denies threats or abuse. Denies injuries from another. Nutritional screening: No deficits noted. Tuberculosis screening: No symptoms or risk factors identified. Assessment: 23:57 General: see triage assessment. lg3 04/28 01:42 Reassessment: Patient appears in no apparent distress at this time. No changes from lg3 previously documented assessment. Patient and/or family updated on plan of care and expected duration. Pain level reassessed. Patient is alert, oriented x 3, equal unlabored respirations, skin warm/dry/pink. Patient states symptoms have improved. Vital Signs: 04/27 23:53 BP 144 / 86; Pulse 80; Resp 17 S; Temp 98.7(O); Pulse Ox 99% on R/A; Weight 114.31 kg lg3 (R); Height 5 ft. 3 in. (R); Pain 8/10; 04/28 00:55 BP 135 / 73; Pulse 66; Resp 16 S; Pulse Ox 96% on R/A; lg3 01:42 BP 127 / 84; Pulse 70; Resp 16 S; Pulse Ox 98% on R/A; lg3 04/27 23:53 Body Mass Index 44.64 (114.31 kg, 160.02 cm) lg3 04/27 23:53 Pain Scale: Adult lg3 ED Course: 04/27 23:41 Patient arrived in ED. gm2 23:45 Amaris Sullivan PA-C is PHCP. sb4 23:45 Thuan Davidson MD is Attending Physician. sb4 23:54 Triage completed. br2 23:54 Arm band placed on right wrist. lg3 23:57 Patient has correct armband on for positive identification. Placed in gown. Bed in low lg3 position. Call light in reach. Side rails up X 1. Client placed on continuous cardiac and pulse oximetry monitoring. NIBP monitoring applied. Door closed. Noise minimized. Warm blanket given. Pillow given. 04/28 00:14 Leesa Johansen, RN is Primary Nurse. lg3 00:14 Inserted saline lock: 22 gauge in right antecubital area, using aseptic technique. lg3 Flushed with 10 mL NS. 01:43 No provider procedures requiring assistance completed. IV discontinued, intact, lg3 bleeding controlled, No redness/swelling at site. Pressure dressing applied. Administered Medications: 00:14 Drug: Droperidol IVP 2.5 mg IVP once Route: IVP; Site: right antecubital; lg3 01:40 Follow up: Response: No adverse reaction; Marked relief of symptoms lg3 00:14 Drug: Famotidine IVP 20 mg IVP once; dilute with 10 mL 0.9% NaCl; give over 2 minutes lg3 Route: IVP; Site: right antecubital; 01:40 Follow up: Response: No adverse reaction; Marked relief of symptoms lg3 00:14 Drug: NS 0.9% IV 1000 ml IV at 1000 ml once; to be given as a bolus over 60 minutes lg3 Route: IV; Rate: 1000 ml; Site: right antecubital; 01:40 Follow up: Response: No adverse reaction; IV Status: Completed infusion; IV Intake: lg3 1000ml 01:39 Drug: Ondansetron IVP 4 mg IVP once; over 2 minutes Route: IVP; Site: right antecubital;lg3 01:43 Follow up: Response: No adverse reaction lg3 01:40 Not Given (Physician Discretion): fentanyl (pf)50 mcg IVP once lg3 Medication: 04/27 23:57 VIS not applicable for this client. lg3 Intake: 04/28 01:40 IV: 1000ml; Total: 1000ml. lg3 Outcome: 01:30 Discharge ordered by . sb4 01:43 Discharged to home ambulatory, lg3 01:43 Condition: stable 01:43 Discharge instructions given to patient, Instructed on discharge instructions, follow up and referral plans. Demonstrated understanding of instructions, follow-up care, 01:44 Patient left the ED. lg3 Signatures: Leesa Johansen RN RN lg3 Amaris Sullivan, PANicholeC PANicholeC sb4 Elizabeth Salazar gm2 Ree Iqbal RN RN br2 Corrections: (The following items were deleted from the chart) 04/27 23:55 23:51 Chief complaint: Patient states: PT ARRIVES TO ER DUE TO B/P BEING ELEVATED br2 205/85. PT HAS A LOG OF B/P RESULTS AND IS CHECKING IT EVERY 10 MINUTES. PT [facility] br2 23: 23:51 Coronavirus screen: Client denies travel out of the [place] in the last 14 days. br2 br2 23: 23:51 Ebola Screen: Patient denies exposure to infectious person. br2 br2 23:55 23:51 Initial Sepsis Screen: Does the patient meet any 2 criteria? No. Patient's br2 initial sepsis screen is negative. Does the patient have a suspected source of infection? No. Patient's initial sepsis screen is negative. br2 23:55 23:51 Risk Assessment: Do you want to hurt yourself or someone else? Patient reports no br2 desire to harm self or others. br2 :55 23:51 Onset of symptoms is unknown. br2 br2 23:55 23:51 Method Of Arrival: Ambulatory br2 br2 23:55 23:51 BP 185 / 84; Pulse 69bpm; Resp 18bpm; Spontaneous; Pulse Ox 100% RA; Temp 97.1F br2 Temporal; 83.91 kg; Height 5 ft. 6 in.; BMI: 29.8; Pain 0/10, Adult; br2 23:55 23:51 Acuity: STEPHANIE 3 br2 br2
--- NOTE | 2025-04-28 01:31 | EDPHYS ---
Physician Documentation [facility] Name: Keara Ramsey Age: 44 yrs Sex: Female : 1980 Arrival Date: 04/27/2025 Time: 23:39 Bed 18 Private MD: ED Physician Thuan Davidson HPI: 04/27 23:58 This 44 yrs old Black Female presents to ER via Ambulatory with complaints of Abdominal sb4 Pain. 23:58 Patient presents with fourth visit within the past 6 days with complaints of epigastric sb4 pain secondary to peptic ulcer. She has had full workups done that were unremarkable. Has an appointment to see GI in 3 days. States that she only recently filled her medications but it is not helping. Was last seen this morning for pain. States that the only thing she has eaten or drink today is juice but has still had a lot of pain despite taking her omeprazole, Carafate, baking soda with water, and Tylenol. 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 - Infectious Disease History:: Denies. - Social history:: Smoking status: Patient denies any tobacco usage or history of. Patient/guardian denies using alcohol, street drugs. ROS: 23:58 Constitutional: Negative for fever, chills, and weight loss, sb4 23:58 Abdomen/GI: Positive for abdominal pain, 23:58 All other systems are negative, Exam: 23:58 Head/Face: Normocephalic, atraumatic. Eyes: Extra-ocular motions intact. Periorbital sb4 areas with no swelling, redness, or edema. ENT: Mucous membranes moist. Respiratory: No increased work of breathing, no retractions or nasal flaring. Skin: Warm, dry with normal turgor. Normal color with no rashes, no lesions, and no evidence of cellulitis. 23:58 Constitutional: The patient appears alert, awake, uncomfortable, 04/28 00:03 Special observations: complaints out of proportion to exam, sb4 Vital Signs: 04/27 23:53 BP 144 / 86; Pulse 80; Resp 17 S; Temp 98.7(O); Pulse Ox 99% on R/A; Weight 114.31 kg lg3 (R); Height 5 ft. 3 in. (R); Pain 8/10; 04/28 00:55 BP 135 / 73; Pulse 66; Resp 16 S; Pulse Ox 96% on R/A; lg3 01:42 BP 127 / 84; Pulse 70; Resp 16 S; Pulse Ox 98% on R/A; lg3 04/27 23:53 Body Mass Index 44.64 (114.31 kg, 160.02 cm) lg3 04/27 23:53 Pain Scale: Adult lg3 MDM: 04/27 23:47 Medical Screening Exam initiated sb4 04/28 00:08 External Records Reviewed: Outpatient record: prior ED visit notes, labs, radiology. sb4 [facility], no active prescriptions. 01:31 Data reviewed: vital signs, nurses notes, and as a result, I will discharge patient. sb4 Test considered but Not performed: Labs: done this morning, all normal. CT: has had 2 negative CTs within the past 6 days. Counseling: I had a detailed discussion with the patient and/or guardian regarding the historical points, exam findings, and any diagnostic results supporting the discharge/admit diagnosis, the need for outpatient follow up, a clinical informatics specialist. Special discussion: Based on the patient's Hx, exam, and Dx evaluation, there is no indication for emergent surgery or inpatient Tx. It is understood by the patient/guardian that if the Sx's persist or worsen they need to return immediately for re-evaluation. I discussed with the patient/guardian in detail that at this point there is no indication for admission to the hospital. It is understood, however, that if the symptoms persist or worsen the patient needs to return immediately for re-evaluation. Based on the presenting symptoms and work-up in the emergency department, I discussed in detail the need to arrange with the PCP or specialist an outpatient procedure, esophagogastroduodenoscopy by the GI specialist, I discussed with the patient their frequent requests for pain medications. Instructions have been given, that in the best interests of the patient, further pain Rx's must come from the patient's PCP or a pain medicine physician. Based on the history and exam findings, there is no indication for further emergent testing or inpatient evaluation. I discussed with the patient/guardian the need to see the clinical informatics specialist for further evaluation of the symptoms. 04/27 23:58 Order name: IV Start; Complete Time: 00:14 sb4 Administered Medications: 00:14 Drug: Droperidol IVP 2.5 mg IVP once Route: IVP; Site: right antecubital; lg3 01:40 Follow up: Response: No adverse reaction; Marked relief of symptoms lg3 00:14 Drug: Famotidine IVP 20 mg IVP once; dilute with 10 mL 0.9% NaCl; give over 2 minutes lg3 Route: IVP; Site: right antecubital; 01:40 Follow up: Response: No adverse reaction; Marked relief of symptoms lg3 00:14 Drug: NS 0.9% IV 1000 ml IV at 1000 ml once; to be given as a bolus over 60 minutes lg3 Route: IV; Rate: 1000 ml; Site: right antecubital; 01:40 Follow up: Response: No adverse reaction; IV Status: Completed infusion; IV Intake: lg3 1000ml 01:39 Drug: Ondansetron IVP 4 mg IVP once; over 2 minutes Route: IVP; Site: right antecubital;lg3 01:43 Follow up: Response: No adverse reaction lg3 01:40 Not Given (Physician Discretion): fentanyl (pf)50 mcg IVP once lg3 Disposition: 07:39 Co-signature as Attending Physician, Thuan Davidson MD I agree with the assessment sp4 and plan of care. I reviewed the patient's care provided by the Advanced Practice Provider and agree with the diagnosis and treatment plan. Disposition Summary: 04/28/25 01:30 Discharge Ordered Notes: Location: Home sb4 Problem: an ongoing problem sb4 Symptoms: have improved sb4 Condition: Stable sb4 Diagnosis - Upper abdominal pain, unspecified sb4 Followup: sb4 - With: Private Physician - When: As needed - Reason: Recheck today's complaints, Re-evaluation by your physician Discharge Instructions: - Discharge Summary Sheet sb4 - Abdominal Pain, Adult sb4 Forms: - Patient Portal Instructions sb4 - Leadership Thank You Letter sb4 Signatures: Leesa Johansen, RN RN lg3 Amaris Sullivan PA-C PA-C sb4 Thuan Davidson MD MD sp4
[2025-04-28 02:05] VITALS: TEMP 98.7
[2025-04-28 02:06] VITALS: BP 127/84; O2SAT 98
== END 2025-04-28 01:44 | disposition home or self-care (01) ==
LOC: ER 23:39
DX: R10.13 Epigastric pain (principal)
CPT/HCPCS: 96361; 96375; 96374; 99284; J3010; J2405; J1790; J7030